=== PATIENT | female | born 1990 | race Asian ===

== ENCOUNTER 2017-09-27 04:40 | Outpatient (CLI) | payer MEDICAID ==
[2017-09-27] MEDS ORDERED: TERBUTALINE 1 ML (05:57)
[2017-09-27] MEDS: TERBUTALINE 1 MG/ML INJ SC (06:06)
[2017-09-27 07:14] LABS: ADD UMIC YES; UR ASCORBIC ACID NEGATIVE (NEGATIVE); UR BACTERIA FEW /HPF (NONE SEEN); UR BILIRUBIN (Dip) NEGATIVE (NEGATIVE); UR BLOOD (Dip) 2+ mg/dL (NEGATIVE); UR CLARITY CLEAR (CLEAR); UR COLOR STRAW (YELLOW); UR GLUCOSE (Dip) NEGATIVE (NEGATIVE); UR KETONES (Dip) NEGATIVE (NEGATIVE); UR LEUKOCYTE ESTERASE (Dip) 2+ Leu/ul (NEGATIVE); UR NITRITE (Dip) NEGATIVE (NEGATIVE); UR RBC 0 /HPF (0-5); UR SPECIFIC GRAVITY (Dip) 1.003 (1.003-1.030); UR SQUAMOUS EPITHELIAL CELL FEW /HPF (FEW); UR TOTAL PROTEIN (Dip) NEGATIVE (NEGATIVE); UR UROBILINOGEN (Dip) NEGATIVE (NEGATIVE); UR WBC 24 /HPF (0-5)
== END 2017-09-27 07:25 | disposition home or self-care (01) ==
LOC: OBT 04:40 → L-D 04:40 → OBT 07:25
DX: O47.02 False labor before 37 completed weeks of gestation, second trimester (principal); Z3A.27 27 weeks gestation of pregnancy
CPT/HCPCS: 76815; 76818; 81001; 96372

== ENCOUNTER 2017-12-29 07:30 | Inpatient (IN) | payer MEDICAID ==
[2017-12-29] MEDS ORDERED: BUTORPHANOL 2 MG INJ IV (10:30)
[2017-12-29] MEDS ORDERED: METHYLERGONOVINE 0.2 MG INJ IM (10:30)
[2017-12-29] MEDS ORDERED: MISOPROSTOL 200 MCG TAB PR (10:30)
[2017-12-29] MEDS ORDERED: OXYTOCIN 30 UNITS/LR 500 ML IV ×3 (10:30)
[2017-12-29] MEDS ORDERED: CARBOPROST 250 MCG INJ IM (10:30)
[2017-12-29] MEDS ORDERED: LIDOCAINE 1% (MPF) 30 ML INJ INJ (10:30)
[2017-12-29] MEDS: LACTATED RINGER'S 1,000 ML IV* ×2 (10:44→17:02)
[2017-12-29 11:26] LABS: ADD MAN DIFF? NO
[2017-12-29 11:29] LABS: BASOPHILS % 0.3 % (0.0-2.0); EOSINOPHILS % 0.1 % (0.0-7.0); HEMATOCRIT 35.1 % (37.0-47.0); HEMOGLOBIN 11.9 g/dl (12.0-16.0); LYMPHOCYTES # 1.2 10^3/ul (0.8-2.9); LYMPHOCYTES % 15.7 % (15.0-51.0); MEAN CORPUSCULAR HEMOGLOBIN 33.6 pg (29.0-33.0); MEAN CORPUSCULAR HGB CONC 33.9 g/dl (32.0-37.0); MEAN CORPUSCULAR VOLUME 99.2 fl (82.0-101.0); MEAN PLATELET VOLUME 12.2 fl (7.4-10.4); MONOCYTE # 0.5 10^3/ul (0.3-0.9); MONOCYTES % 6.5 % (0.0-11.0); NEUTROPHILS % 77.1 % (39.0-77.0); NUCLEATED RED BLOOD CELLS% 0.3 /100WBC (0.0-0.0); PLATELET COUNT 157 10^3/UL (140-415); RED BLOOD COUNT 3.54 10^6/ul (4.20-5.40)
[2017-12-29 11:29] LABS: WHITE BLOOD COUNT 7.8 10^3/ul (4.8-10.8)
[2017-12-29 11:48] LABS: INR 0.85; PROTIME 11.7 Sec (11.9-14.9); PT RATIO 0.9
[2017-12-29 11:49] LABS: PARTIAL THROMBOPLASTIN TIME 28.3 Sec (25.0-35.0)
[2017-12-29 15:02] LABS: RAPID PLASMA REAGIN NONREACTIVE (NR)
[2017-12-29] MEDS: OXYTOCIN 30 UNITS/LR 500 ML IV (20:41)
[2017-12-29 22:40] LABS: HEPATITIS B SURFACE ANTIGEN NEGATIVE (NEGATIVE)
[2017-12-30] MEDS: LACTATED RINGER'S 1,000 ML IV* ×3 (00:36→03:45)
[2017-12-30] MEDS ORDERED: FENTAnyl 2MCG/ML-ROPIV 0.2% 100 ML (02:39)
[2017-12-30] MEDS ORDERED: BUTORPHANOL 2 MG INJ IV (04:00)
[2017-12-30] MEDS ORDERED: OXYTOCIN 30 UNITS/LR 500 ML IV (04:00)
[2017-12-30] MEDS ORDERED: METHYLERGONOVINE 0.2 MG INJ IM (04:00)
[2017-12-30] MEDS ORDERED: LIDOCAINE 1% (MPF) 30 ML INJ INJ (04:00)
[2017-12-30] MEDS ORDERED: MISOPROSTOL 200 MCG TAB PR (04:00)
[2017-12-30] MEDS ORDERED: CARBOPROST 250 MCG INJ IM (04:00)
[2017-12-30] MEDS ORDERED: NALOXONE (0.4 MG/ML) INJ IV (07:30)
[2017-12-30] MEDS ORDERED: FENTAnyl 2MCG/ML-ROPIV 0.2% 100 ML BAG EPI (07:30)
[2017-12-30] MEDS: OXYTOCIN 30 UNITS/LR 500 ML IV ×2 (10:40→11:50)
[2017-12-30] MEDS ORDERED: OXYCODONE/ASPIRIN (4.88/325) TAB PO ×2 (12:00)
[2017-12-30] MEDS ORDERED: ACETAMINOPHEN 325 MG TAB PO (12:00)
[2017-12-30] MEDS ORDERED: DIBUCAINE 1% 30 GM OINT PR (12:00)
[2017-12-30] MEDS ORDERED: HYDROCODONE/APAP (5/325) TAB PO ×2 (12:00)
[2017-12-30] MEDS ORDERED: ONDANSETRON 4 MG INJ IV (12:00)
[2017-12-30] MEDS: IBUPROFEN 600 MG TAB PO ×2 (12:22→17:38)
[2017-12-30] MEDS: SENNA/DOCUSATE NA (8.6MG/50MG) TAB PO (21:27)
[2017-12-31] MEDS: IBUPROFEN 600 MG TAB PO ×4 (00:43→18:36)
[2017-12-31] MEDS: LANOLIN 7 GM TUBE TOP (05:37)
[2017-12-31] MEDS: BENZOCAINE 20% 56 ML SPRAY TOP (05:37)
[2017-12-31] MEDS: WITCH HAZEL/GLYCERIN PAD PR (05:37)
[2017-12-31 08:42] LABS: ADD MAN DIFF? NO
[2017-12-31 09:18] LABS: BASOPHILS % 0.2 % (0.0-2.0); EOSINOPHILS # 0.1 10^3/ul (0.0-0.5); EOSINOPHILS % 0.7 % (0.0-7.0); HEMATOCRIT 33.2 % (37.0-47.0); HEMOGLOBIN 11.1 g/dl (12.0-16.0); LYMPHOCYTES # 1.5 10^3/ul (0.8-2.9); LYMPHOCYTES % 16.7 % (15.0-51.0); MEAN CORPUSCULAR HEMOGLOBIN 33.2 pg (29.0-33.0); MEAN CORPUSCULAR HGB CONC 33.4 g/dl (32.0-37.0); MEAN CORPUSCULAR VOLUME 99.4 fl (82.0-101.0); MEAN PLATELET VOLUME 12.1 fl (7.4-10.4); MONOCYTE # 0.4 10^3/ul (0.3-0.9); MONOCYTES % 4.4 % (0.0-11.0); NEUTROPHILS % 77.7 % (39.0-77.0); PLATELET COUNT 122 10^3/UL (140-415); RED BLOOD COUNT 3.34 10^6/ul (4.20-5.40)
[2017-12-31] MEDS: SENNA/DOCUSATE NA (8.6MG/50MG) TAB PO ×2 (09:44→21:30)
[2018-01-01] MEDS: IBUPROFEN 600 MG TAB PO ×3 (00:11→12:12)
[2018-01-01] MEDS: MEASLES,MUMPS,RUBELLA VACCINE INJ SC* (09:00)
[2018-01-01] MEDS: SENNA/DOCUSATE NA (8.6MG/50MG) TAB PO (09:00)
== END 2018-01-01 15:08 | disposition home or self-care (01) | DRG 775 ==
LOC: OBT 07:30 → PP1 12-30 11:25 → L-D 07:30 → OBT 07:35 → L-D 07:35
PROVIDERS: Obstetrics & Gynecology
PROC: 10E0XZZ Delivery of Products of Conception, External Approach (ICD-10-PCS; principal; 2017-12-30)
PROC: 0HQ9XZZ Repair Perineum Skin, External Approach (ICD-10-PCS; 2017-12-30)
PROC: 3E033VJ Introduction of Other Hormone into Peripheral Vein, Percutaneous Approach (ICD-10-PCS; 2017-12-30)
DX: O48.0 Post-term pregnancy (principal); Z3A.41 41 weeks gestation of pregnancy; O99.214 Obesity complicating childbirth; O69.81X0 Labor and delivery complicated by cord around neck, without compression, not applicable or unspecified; O70.0 First degree perineal laceration during delivery; Z37.0 Single live birth
CPT/HCPCS: 62319; 76815; 76818; 85025; 85610; 85730; 86592; 86850; 86900; 86901; 87340

== ENCOUNTER 2018-02-11 19:13 | Emergency (ER) | payer MEDICAID | END 2018-02-11 22:17 | disposition home or self-care (01) | LOC: FTE 19:13 | DX: K62.89 Other specified diseases of anus and rectum (principal) | CPT/HCPCS: 99282; Z7502 ==